=== PATIENT | male | born 1985 | race Two or more races ===

== ENCOUNTER 2025-02-19 14:32 | Emergency (ER) | payer MEDICAID, OTHER, SELFPAY ==
--- OUTSIDE RECORDS SUMMARY | 2024-04-17 06:30 | XMS_ITS ---
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, [facility] Pcp:PCP NO Subjective: * Chief Complaints: * 1 . SSA/call for [employer] permission to work. * Medical History: Objective: Assessment: Plan: * Treatment: * Images: Billing Information: * Visit Code: * Procedure Codes: Care Plan Details* * Electronic signature of Mike Zuniga on 02/19/2025 at 06:58 PM EST Sign off status: Pending * Provider: Diogo Zuniga Date: 0 04/17/2024 Generated for Printi ng/Fajennig/eTransmitting on: 1 04/21/2024 06:58 PM EST
--- NOTE | 2025-02-19 14:36 | ED.GENADULT ---
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 The patient did not fall down. There was no loss of consciousness. He does not feel that he has any dental injury. He has a somewhat gaping laceration of the lower lip and that is the reason for which he is in the emergency room. He has no headache. No neck pain. No pain with moving his neck. No other injuries. He says his last tetanus shot was approximately 2 years ago. Related Data Previous Rx's ?Medication ?Instructions ?Recorded amoxicillin 875 mg-potassium 1 tab PO BID #6 tabs 02/19/25 clavulanate 125 mg tablet Allergies Allergy/AdvReac Type Severity Reaction Status Date / Time No Known Allergies Allergy Verified 02/19/25 14:40 Review of Systems Review of Systems: Yes all other systems are reviewed and are negative PMFSH Social History Social History Advance Directives: No Advance Directives Information Provided: Yes Physical Exam ED Vital Signs: Vital Signs - 24 hr 02/19/25 14:39 02/19/25 16:48 Temperature 97.6 F 97.6 F Pulse Rate 63 63 Respiratory Rate 18 18 Blood Pressure 121/73 121/73 Pulse Oximetry 98 98 Oxygen Delivery Method Room Air Room Air BMI result Body Mass Index 25.1 Const Other: The patient is a healthy looking 40-year-old male who was awake and alert. He has an obvious laceration to the middle of his lower lip. He otherwise does not seem to show any obvious signs of injury. He looks as if he is ordinarily healthy 40-year-old. Orientation/consciousness: patient oriented x3 HENMT Other: There is a laceration of the lower lip which is extending through the vermilion border into the skin below the lower lip. The length of extension into the skin itself is quite small. The length of the skin portion of the laceration is probably 3 or 4 mm. The length of the laceration on the lip itself is probably 1.2-1.4 cm. The lip laceration extends across the dry mucosa and stops at roughly the border of the dry mucosa and wet mucosa. The laceration is beveled and extends into the muscle of the lip. The teeth seem uninjured. The jaw seems uninjured. Eyes General: appearance normal, both eyes and all related structures Neck Other: No posterior cervical spine tenderness. Moving his neck easily without pain. C-spine is clinically clear. Resp Effort & Inspection: normal respiratory effort Skin Other: There is a laceration through the dry mucosa of the lower lip that extends slightly across the vermilion border into the skin. Please see the facial exam for additional details. Neuro General: patient oriented x3, gait normal, tone normal, moves all extremities, no focal motor deficits and CN's II-XI intact bilaterally Course Course Course Narrative: This is a rapid medical exam performed by Rudolph Hamilton NP: Additional HPI, ROS, PE not included below will be deferred to primary provider. Patient is a 40y/o Turkish speaking M presenting to the ED with laceration to lower lip through the duane border. Hit in the face with something metal at work, did not fall. Not anticoagulated. UTD on tetanus. Plan: needs sutures Medications Administered Discontinued Medications Generic Name Dose Route Start Last Admin Trade Name Freq PRN Reason Stop Dose Admin Amoxicillin/Clavulanate Potassium 875 mg 02/19/25 16:34 02/19/25 16:43 Amoxicillin/Potassium Clav 875 Mg Tablet PO 02/19/25 16:35 875 mg ONCE ONE Administration Lidocaine HCl 5 ml 02/19/25 15:44 02/19/25 15:49 Lidocaine Hcl 2 % Mpf 5 Ml Vial INFILTRATI 02/19/25 15:45 5 ml ONCE ONE Administration Procedures Laceration Laceration 1: Site: lip (Laceration is in the middle lower lip, primarily a vertically oriented laceration but beveled so that the left side of the lac somewhat curled up. Laceration crosses the vermilion slightly into the lower skin) Size (cm): 1.8 Description: linear Depth: involves muscle layer Local Anesthetic: lidocaine 2% (I administered 2% lidocaine in in each of the mental nerves, 2 mL on each side) Amount of anesthesia used (mL): 4 Pre-repair: wound explored and irrigated extensively Skin layer closed with: nylon (Ethilon) Size (cm): 6-0 Number of sutures: 4 Technique: simple, interrupted Muscle layer closed with: vicryl (Vicryl Rapide) Size: 5-0 Number of sutures: 2 Medical Decision Making Medical Decision Making [facility] Narrative: The patient has a lower lip laceration that is in the middle of the lower lip and which is primarily horizontally oriented but it is beveled so that the tissue on the left side curls somewhat. 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 This provided excellent anesthesia to the laceration. The wound was then thoroughly cleaned. Because the wound extends into the muscle of the lip I placed 2 subcutaneous sutures using 5 0 Vicryl Rapide to help bring the muscle edges together. This also helped bring the mucosal edges together as well. I then placed a stitch at the vermilion border, on the skin side of the vermilion border, with 6 0 Ethilon. This approximated the vermilion border well. I then placed 4 additional simple interrupted stitches in the dry mucosa of the lip to close the remainder of the wound. Overall good wound edge approximation was achieved and an anatomic cosmetic result seemed to be achieved as well. The patient will be put on 2 days of Augmentin for wound infection prophylaxis. The patient is up-to-date on tetanus. Although this injury occurred while the patient was working it is not clear to me the patient is situation at work is covered by workmen's compensation. Therefore the patient will be advised to go to an urgent care center or return to the emergency room for suture removal in 6 days. He was advised that the suture which is just below the vermilion border and therefore through the skin may be obscured by the hair of his peña. He needs to be sure that all 5 sutures are removed. Discharge Plan Discharge Clinical Impression: Laceration of lower lip Patient Disposition: Home, Self-Care Instructions: Laceration (ED) Additional Instructions: Your wound was closed with 2 deep stitches and 5 superficial stitches. Four (4) of the superficial stitches are in your lip. One (1) of the superficial stitches is in the skin just below the lip. These stitches should be removed next Tuesday. You may go to an urgent care clinic or return to the emergency room for suture removal. Since the mouth has a lot of bacteria you are being placed on a short course of antibiotics to help make sure you do not get an infection. Please take this antibiotic 2 times a day, next dose tomorrow morning. You may use ibuprofen and acetaminophen as needed for any pain. Again, make sure that all 5 stitches are removed when you go for suture removal. The lowest stitch, the stitch in the skin just below the lip, is hard to see because of your peña. Nevertheless the stitches are blue and that should make it easier to see against your black peña. Return to the emergency room if any signs of infection or other concerns. Prescriptions: New amoxicillin-pot clavulanate 875-125 mg tablet 1 tab PO BID Qty: 6 0RF Stand Alone Forms: Work/School Release Interventions: ED Discharge Assessment Last Done: 02/19/25 16:48 Discharge Date/Time: 02/19/25 16:49 Print Language: Turkish
[2025-02-19 14:39] VITALS: BP 121/73; PULSE 63; RESP 18; TEMP 36.4; O2SAT 98; BMI 25.1
[2025-02-19] MEDS: Lidocaine HCl 2 % MPF 5 ML VIAL INFILTRATI (15:49)
[2025-02-19 16:48] VITALS: BP 121/73; PULSE 63; RESP 18; TEMP 36.4; O2SAT 98
--- OUTSIDE RECORDS SUMMARY | 2025-02-19 18:59 | XMS_ITS | Patient Health Record ---
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 Name Role Phone NO, PCP Primary Care Provider France Zuniga Unavailable [facility], [facility] Unavailable [phone] Reason For Referral No Information Encounters Encounter Location Date Provider Diagnosis [facility] [address] [place], [place] [phone] 03/14/2024 [facility] [address], [place] [phone] 03/29/2024 France Zuniga [facility] [address] [place], [place] [phone] 06/14/2024 France Zuniga [facility] [address], [place] [phone] 06/04/2024 France Zuniga [facility] [address], [place] [phone] 03/12/2024 France Zuniga [facility] [address] [place] [phone] 03/09/2024 France Zuniga Plan Of Treatment No Information Insurance Providers Payer Name Payer Address Payer Phone Subscriber Number Group Number Insured Name Patient Relationship to Insured Coverage Start Date Coverage End Date Insurance - None Need to apply for insurance [id number] [place] [phone] Arturo Navas Self - patient is the insured
== END 2025-02-19 16:49 | disposition home or self-care (01) ==
PROVIDERS: Emergency Provider Emergency Medicine
DX: S01.511A Laceration without foreign body of lip, initial encounter (principal); X58.XXXA Exposure to other specified factors, initial encounter; Y93.89 Activity, other specified; Y92.89 Other specified places as the place of occurrence of the external cause; Y99.0 Civilian activity done for income or pay
CPT/HCPCS: 12011; 99282; 99283; 99284; J2003